=== PATIENT | female | born 1965 | race Caucasian/White ===

== ENCOUNTER 2021-05-22 06:53 | Inpatient (IN) | payer OTHER ==
[~2021-05-22] VITALS: Ht 165.1 cm; Wt 89.4 kg
[2021-05-22] MEDS ORDERED: MULTI-VITAMIN1 EACH PO (13:46)
[2021-05-22] MEDS ORDERED: CLARITIN10 MG PO (13:47)
[2021-05-22] MEDS ORDERED: PREVACID30 MG PO (13:47)
[2021-05-22] MEDS ORDERED: INCRUSE ELLI62.5 MCG INH (13:47)
[2021-05-22] MEDS ORDERED: PAXIL20 MG PO (13:47)
[2021-05-22] MEDS ORDERED: VALIUM5 MG PO (13:48)
[2021-05-22] MEDS ORDERED: RISPERDAL3 MG PO (13:48)
[2021-05-22] MEDS ORDERED: GLUCOPHAGE500 MG PO (13:49)
[2021-05-22] MEDS ORDERED: HYDROXYZINE HCL50 MG PO (13:49)
[2021-05-22] MEDS ORDERED: HALDOL 5 MG TAB5 MG PO (13:50)
[2021-05-22] MEDS ORDERED: BENTYL 20MG TAB20 MG PO (13:50)
[2021-05-22] MEDS ORDERED: LOPERAMIDE2 M1 PO (13:51)
[2021-05-22] MEDS ORDERED: TYLENOL EXTRA500 MG PO (13:51)
[2021-05-23 03:09] LABS: RED BLOOD COUNT 5.6 M/UL (4.00-5.10); WHITE BLOOD COUNT 12.3 K/UL (4.5-11.0)
[2021-05-23 03:35] LABS: BUN/CREATININE RATIO 20 (0-10)
[2021-05-24 07:03] LABS: HEMOGLOBIN 14.9 gm/dl (12.3-15.3); RED BLOOD COUNT 5.86 M/UL (4.00-5.10)
[2021-05-24 07:17] LABS: BUN/CREATININE RATIO 21 (0-10)
[2021-05-24] MEDS ORDERED: RISPERDAL1 MG PO (14:46)
[2021-05-24] MEDS ORDERED: NICOTINE PATCH1 EAC2 TD (14:46)
[2021-05-24] MEDS ORDERED: VENTOLIN HFA 66.7 GM INH (14:46)
[2021-05-24] MEDS ORDERED: LEVOFLOXACIN500 MG PO (14:46)
[2021-05-24] MEDS ORDERED: PREDNISONE 20 M20 MG PO (14:49)
== END 2021-05-24 18:30 | disposition home or self-care (01) | DRG 193 ==
LOC: PROG CARE 10:25 → M/S 05-23 14:03
PROVIDERS: Physician Assistant Medical; ADMIT Internal Medicine
DX: J18.9 Pneumonia, unspecified organism (principal); J96.01 Acute respiratory failure with hypoxia; J44.0 Chronic obstructive pulmonary disease with (acute) lower respiratory infection; J44.1 Chronic obstructive pulmonary disease with (acute) exacerbation; F20.0 Paranoid schizophrenia; E11.9 Type 2 diabetes mellitus without complications; E78.5 Hyperlipidemia, unspecified; I10 Essential (primary) hypertension; F17.210 Nicotine dependence, cigarettes, uncomplicated; G25.1 Drug-induced tremor; K21.9 Gastro-esophageal reflux disease without esophagitis; Z20.822 Contact with and (suspected) exposure to COVID-19; Z79.899 Other long term (current) drug therapy; Z79.84 Long term (current) use of oral hypoglycemic drugs; Z88.0 Allergy status to penicillin; Z88.8 Allergy status to other drugs, medicaments and biological substances; Z82.49 Family history of ischemic heart disease and other diseases of the circulatory system
CPT/HCPCS: 36415; 71045; 80048; 82550; 82553; 82962; 83036; 83735; 83880; 84484; 85027; 93005; 94640; 94664; 94760; J1100; J1335; J1650; J3475; J7050